=== PATIENT | male | born 1985 | race Caucasian/White ===

== ENCOUNTER 2021-02-11 13:50 | Emergency (ER) | payer OTHER ==
[~2021-02-11] VITALS: Wt 69.4 kg
[2021-02-11 15:32] LABS: BASO % 0.3 % (0.0-1.0); EOS % 0.6 % (1.0-4.0); HEMATOCRIT 42.7 % (42.0-52.0); LYMPH # 1.6 10*3/uL (1.3-4.4); LYMPH % 23.1 % (27.0-41.0); MEAN CELL VOLUME 87.3 fl (80.0-94.0); MEAN CORPUSCULAR HGB 31.3 pg (27.0-31.0); MEAN CORPUSCULAR HGB CONC 35.8 g/dl (33.0-37.0); MEAN PLATELET VOLUME 10.8 fl (9.6-12.3); MONO # 0.9 10*3/uL (0.1-1.0); MONO % 13.6 % (3.0-9.0); NEUT # 4.2 10*3/uL (2.3-7.9); NEUT % 62.1 % (47.0-73.0); PLATELET COUNT AUTOMATED 153 10*3/uL (130-400); RED BLOOD COUNT 4.89 10*6/uL (4.50-5.90); RED CELL DISTRI WIDTH 11.9 % (0-14.5); WHITE BLOOD COUNT 6.8 10*3/uL (4.8-10.8)
[2021-02-11 15:45] LABS: ALBUMIN 3.8 gm/dl (3.1-4.5); ALKALINE PHOSPHATASE 94 U/L (45-117); BUN 13 mg/dl (7-24); CHLORIDE 106 mmol/L (98-107); CREATININE 1.05 mg/dL (0.70-1.30); SGOT/AST 59 IU/L (3-35); SGPT/ALT 101 U/L (12-78); SODIUM 137 mmol/L (136-145); TOTAL PROTEIN 7.5 gm/dL (6.4-8.2)
[2021-02-11 15:48] LABS: BILIRUBIN Negative (Negative); BLOOD Negative (Negative); CLARITY Clear (Clear); COLOR Dark Yellow (Yellow); GLUCOSE Negative (Negative); KETONE Trace (Negative); LEUKO ESTERASE Negative (Negative); NITRITE Negative (Negative); SPECIFIC GRAVITY 1.025 (1.001-1.030)
[2021-02-11 16:09] LABS: BACTERIA TRACE; EPITHELIAL CELLS 0-2; RBC 0-2 rbc/hpf (0-2); WBC 0-2 wbc/hpf (0-5)
== END 2021-02-11 17:12 | disposition home or self-care (01) ==
LOC: ED 13:50
PROVIDERS: Emergency Medicine
DX: R51.9 Headache, unspecified (principal); Z20.822 Contact with and (suspected) exposure to COVID-19; R05 Cough; R11.0 Nausea

== ENCOUNTER 2023-02-02 20:35 | Emergency (ER) | payer OTHER ==
[~2023-02-02] VITALS: Ht 167.6 cm; Wt 74.8 kg
[2023-02-03] MEDS ORDERED: NAPROXEN250 MG PO (12:02)
== END 2023-02-02 23:14 | disposition home or self-care (01) ==
LOC: ED 20:35
DX: S83.91XA Sprain of unspecified site of right knee, initial encounter (principal); V86.56XA Driver of dirt bike or motor/cross bike injured in nontraffic accident, initial encounter; Y93.55 Activity, bike riding; Y92.488 Other paved roadways as the place of occurrence of the external cause; Y99.8 Other external cause status

== ENCOUNTER 2023-12-04 18:45 | Emergency (ER) | payer OTHER ==
[~2023-12-04] VITALS: Ht 167.6 cm; Wt 73.9 kg
[~2023-12-04 18:45] MED LIST: NAPROXEN250 MG PO
[2023-12-04] MEDS ORDERED: Ketorolac Tromethamine 60 MG/2 ML VIAL IM ONE (19:45)
[2023-12-04] MEDS ORDERED: METHOCARBAMOL 750 MG TAB PO ONE (19:45)
[2023-12-04] MEDS ORDERED: METHOCARBAMOL750 M1 PO (19:48)
[2023-12-04] MEDS ORDERED: NAPROXEN250 MG PO (19:48)
== END 2023-12-04 20:04 | disposition home or self-care (01) ==
LOC: ED 18:45
DX: M25.512 Pain in left shoulder (principal); X50.0XXA Overexertion from strenuous movement or load, initial encounter; Y93.89 Activity, other specified; Y92.89 Other specified places as the place of occurrence of the external cause; Y99.8 Other external cause status

== ENCOUNTER 2025-04-16 13:37 | Emergency (ER) | payer SELFPAY ==
[~2025-04-16] VITALS: Ht 167.6 cm; Wt 76.2 kg
[~2025-04-16 13:37] MED LIST changes: +METHOCARBAMOL750 M1 PO
[2025-04-16] MEDS ORDERED: AMOX-CLAV 875-1 EACH PO (14:17)
[2025-04-16] MEDS ORDERED: Amoxicillin/Clavulanate Pota 875 MG TAB PO ONE (14:20)
== END 2025-04-16 14:25 | disposition home or self-care (01) ==
LOC: ED 13:37
DX: J32.9 Chronic sinusitis, unspecified (principal); Z98.890 Other specified postprocedural states